=== PATIENT | male | born 1955 | race Caucasian/White ===

== ENCOUNTER 2023-11-02 09:50 | Emergency (ER) | payer BC, SELFPAY ==
--- NOTE | 2023-11-02 10:05 | ED.GENADULT ---
HPI - General Adult General Chief complaint: Dental/Oral Stated complaint: Toothache/Facial Swelling Time Seen by Provider: 11/02/23 10:01 Source: patient, RN notes reviewed and old records reviewed Mode of arrival: ambulatory Limitations: no limitations History of Present Illness HPI narrative: 67-year-old male to [facility] for complaint of lower lip and chin pain and swelling for 3 days. Patient reports having poor dentition and states he does not have a dentist. Patient reporting pain at 7/10 currently. Patient endorses history of diabetes, hypertension, high cholesterol, and dental abscesses. Patient denies fever, nausea, cough, difficulty breathing. Patient able to tolerate fluids by mouth. Respirations even and nonlabored. Patient in no acute distress in exam room Related Data Home Medications Medication Instructions Recorded Confirmed atorvastatin 80 mg tablet 80 mg PO DAILY 11/02/23 11/02/23 glimepiride 1 mg tablet 1 mg PO DAILY 11/02/23 11/02/23 lisinopril 40 mg tablet 20 mg PO DAILY 11/02/23 11/02/23 metformin 850 mg tablet 850 mg PO TID 11/02/23 11/02/23 Allergies Allergy/AdvReac Type Severity Reaction Status Date / Time No Known Allergies Allergy Verified 11/02/23 10:05 Review of Systems Review of Systems: All systems reviewed & are unremarkable except as noted in HPI and below Constitutional: Constitutional: Reports no additional constitutional complaints Eyes: Eyes: Reports no additional eye complaints ENT: Reports as per HPI, Reports dental pain, Reports facial pain (lower jaw/chin) and Denies sore throat Cardiovascular: Cardiovascular: Reports no additional cardiovascular complaints, Denies chest pain and Denies dyspnea Respiratory: Respiratory: Reports no additional respiratory complaints, Denies cough and Denies dyspnea Musculoskeletal: Musculoskeletal: Reports no additional musculoskeletal complaints Neurologic: Reports system reviewed and no additional complaints, except as documented Psychiatric: Psychiatric: Reports no additional psychiatric complaints PMFSH Comments At the time of my signature, I reviewed and agree with the nursing past medical, surgical, social, and family history. There is no relevant family history pertinent to the patient complaint. Exam Const: General: cooperative, comfortable, no acute distress, alert, ill appearing chronically, poor hygiene, tired appearing, well nourished and obese Nutritional Appearance: well nourished Orientation/consciousness: patient oriented x3 Limitations: no limitations HENMT: Head: normal to inspection Ears: external ears normal Face/Nose/Sinus: Normal external nose present, Normal nares present, normal facial exam, No erythema and No edema Face and sinus: erythema (chin/midline lower jaw), edema and Facial tenderness on exam of face and sinuses Mouth: Yes tongue normal, Yes oropharynx normal, Yes moist mucous membranes, No drooling, Yes malodorous breath and No muffled voice Teeth and gingiva: abnormal tooth and associated gingiva and gingiva abnormal edematous, diffusely erythematous, tender and receding Throat: posterior oropharynx normal Eyes: General: appearance normal, both eyes and all related structures Neck: Neck: normal visual inspection, full ROM and no meningeal signs Chest: Chest palpation & inspection: normal inspection of the chest Resp: Effort & Inspection: normal respiratory effort and able to speak in complete sentences Auscultation: clear to auscultation bilaterally Cardio: Jugular venous distension: no JVD Rate: regular rate Rhythm: regular rhythm Back/Spine/Pelvis: Cervical Spine: cervical ROM normal Skin: General skin exam: no rashes or lesions noted and turgor normal Neuro: General: patient oriented x3, gait normal, moves all extremities and no meningeal signs Speech: normal speech Gait exam (Neuro): Normal gait present Extrem: General: normal to inspection, full ROM and capillary
[2023-11-02 10:07] VITALS: BP 177/85; PULSE 85; RESP 16; TEMP 37.1; O2SAT 97
== END 2023-11-02 10:46 | disposition home or self-care (01) ==
PROVIDERS: Emergency Provider Nurse Practitioner Family; PCP Internal Medicine Infectious Disease
DX: K02.9 Dental caries, unspecified (principal); K04.7 Periapical abscess without sinus; S02.5XXA Fracture of tooth (traumatic), initial encounter for closed fracture; X58.XXXA Exposure to other specified factors, initial encounter; R35.0 Frequency of micturition; E11.9 Type 2 diabetes mellitus without complications; Z79.84 Long term (current) use of oral hypoglycemic drugs; I10 Essential (primary) hypertension; E78.00 Pure hypercholesterolemia, unspecified
CPT/HCPCS: 81003; 87086; 99213; G0463